=== PATIENT | female | born 1990 | race Caucasian/White ===

== ENCOUNTER 2017-07-23 19:58 | Emergency (ER) | payer MEDICARE, MEDICAID ==
[2017-07-23 20:42] LABS: BASOPHILS # (AUTO) 0.1 10^3/uL (0.0-0.1); BASOPHILS % (AUTO) 1.1 %; EOSINOPHILS # (AUTO) 0.6 10^3/uL (0.0-0.7); HCT - HEMATOCRIT 39.2 % (37.0-47.0); HGB - HEMOGLOBIN 13.1 g/dL (12.0-16.0); LYMPHOCYTES # (AUTO) 3.2 10^3/uL (1.5-3.5); LYMPHOCYTES % (AUTO) 45.7 %; MEAN CORPUSCULAR HEMOGLOBIN 28.5 pg (27.0-31.0); MEAN CORPUSCULAR HGB CONC 33.4 g/dL (32.0-36.0); MEAN CORPUSCULAR VOLUME 85.3 fL (81.0-99.0); MEAN PLATELET VOLUME 7.6 fL (7.9-10.8); MONOCYTES # (AUTO) 0.4 10^3/uL (0.0-1.0); MONOCYTES % (AUTO) 5.4 %; NEUTROPHILS # (AUTO) 2.8 10^3/uL (1.5-6.6); NEUTROPHILS % (AUTO) 39.8 %; RED CELL DISTRIBUTION WIDTH 13.9 % (12.0-15.0); UNCORRECTED WHITE BLOOD COUNT 7.1 x10^3/uL; WHITE BLOOD COUNT 7.1 x10^3/uL (4.8-10.8)
[2017-07-23 20:50] LABS: INR 1.1 (0.8-1.2); PT - PROTHROMBIN TIME 12.1 secs (9.9-12.6)
[2017-07-23 20:56] LABS: ALBUMIN/GLOBULIN RATIO 1.6 (1.0-2.2); BILIRUBIN,TOTAL 0.3 mg/dL (0.2-1.0); CALCIUM 9.3 mg/dL (8.5-10.3); CREATININE 0.8 mg/dL (0.4-1.0); POTASSIUM 3.5 mmol/L (3.5-5.0); TOTAL PROTEIN 7.4 g/dL (6.7-8.2)
[2017-07-23 21:07] LABS: BILIRUBIN,URINE NEGATIVE (NEGATIVE)
[2017-07-23 21:12] LABS: UA w/ MICROSCOPIC CHARGE YES
[2017-07-23 21:13] LABS: HCG UR QUAL NEGATIVE
[2017-07-23 21:24] LABS: UR CULTURE IF IND NOT INDICATED; WBC,URINE 0-3 /HPF (0-5)
[2017-07-23] MEDS ORDERED: IOPAMIDOL-300 100 ML VIAL ONE (21:37)
--- NOTE | 2017-07-23 21:37 | ED Physician Documentation ---
PD HPI CHEST PAIN - Stated complaint Stated Complaint: LEG PX - Chief complaint Chief Complaint: Cardiac - History obtained from History obtained from: Patient - History of Present Illness Timing - onset: How many days ago (3) Timing - onset during: Rest Timing - details: Gradual onset, Still present, Intermittant, Waxing and waning Quality: Pressure, Tightness, Aching Location: Substernal Improved by: Rest Worsened by: Exertion Associated symptoms: No: Shortness of air, Nausea Similar symptoms before: Work up / diagnostics, Treatment Recently seen: Not recently seen - Additional information Additional information: Patient is 26 year old female with a history of prior dvts and PE who is not on blood thinners who is presenting to the emergency department for chest pain and shortness of breath. Patient states that for the last week or so she hasn't felt well. She has had generalized weakness, chest pain, leg swelling and trouble breathing. Patient states that her physician told her to come in if she ever had chest pain with her shortness of breath. Review of Systems Constitutional: reports: Chills, Myalgias. denies: Fever Eyes: denies: Decreased vision, Photophobia Ears: denies: Ear pain, Drainage/discharge Nose: denies: Congestion, Epistaxis Throat: denies: Sore throat Cardiac: reports: Chest pain / pressure, Pedal edema Respiratory: reports: Dyspnea. denies: Wheezing GI: denies: Abdominal Pain, Nausea, Vomiting : denies: Dysuria, Frequency Skin: denies: Rash, Lesions, Abrasion (s) Musculoskeletal: reports: Extremity pain, Extremity swelling Neurologic: reports: Generalized weakness. denies: Focal weakness, Numbness, Difficulty speaking Immunocompromised: denies: Immunocompromised PD PAST MEDICAL HISTORY - Past Medical History Past Medical History: Yes Cardiovascular: Arrhythmia Neuro: Headache/migraine HEENT: None Psych: Anxiety, Post traumatic stress disorder - Allergies Allergies/Adverse Reactions: Allergies Allergy/AdvReac Type Severity Reaction Status Date / Time doxycycline Allergy Unknown Verified 07/23/17 20:12 ketamine Allergy Unknown Verified 07/23/17 20:12 Latex, Natural Rubber Allergy Unknown Verified 07/23/17 20:12 morphine Allergy Unknown Verified 07/23/17 20:12 propranolol Allergy Unknown Verified 07/23/17 20:12 NSAIDS (Non-Steroidal AdvReac Unknown Verified 07/23/17 20:12 Anti-Inflamma - Social History Does the pt smoke?: Yes Smoking Status: Current every day smoker Does the pt drink ETOH?: No Does the pt have substance abuse?: Yes Substance Use and Type: Marijuana - Immunizations Immunizations are current?: No Immunizations: TDAP >10years/unknown - POLST Patient has POLST: No PD ED PE NORMAL - Vitals Vital signs reviewed: Yes - General General: Alert and oriented X 3, No acute distress, Well developed/nourished - HEENT HEENT: Atraumatic, PERRL, Pharynx benign - Neck Neck: Supple, no meningeal sign, No JVD - Cardiac Cardiac: RRR, No murmur - Respiratory Respiratory: No respiratory distress, Clear bilaterally - Abdomen Abdomen: Soft, Non tender, Non distended - Derm Derm: Normal color, Warm and dry, No rash PD ED PE EXPANDED - HEENT HEENT: Dry mucous membranes, Dental decay - Extremities Extremities: Right leg, Left leg (tenderness to palpation of bilateral lower extremities) Results - Vitals Vitals: Vital Signs - 24 hr 07/23/17 07/23/17 07/23/17 20:08 22:24 23:10 Temperature 35.9 C L 36.9 C Heart Rate 63 58 L 78 Respiratory 16 12 16 Rate Blood Pressure 125/50 L 93/53 L 95/60 O2 Saturation 100 98 100 Oxygen O2 Source Room air - EKG (time done) *2012 Rate: Rate (enter#) (50) Rhythm: Sinus bradycardia [place]: Normal Intervals: Normal [place] QRS: Normal, Low voltage Ischemia: Normal ST segments Compare to prior EKG: Old EKG unavailable - Labs Labs: Laboratory Tests 07/23/17 07/23/17 07/23/17 20:35 20:35 20:35 WBC 7.1 RBC 4.60 Hgb 13.1 Hct 39.2 MCV 85.3 MCH 28.5 MCHC 33.4 RDW 13.9 Plt Count 242 MPV 7.6 L Neut # 2.8 Lymph # 3.2 [place] # 0.4 Eos # 0.6 Baso # 0.1 Absolute Nucleated RBC 0.00 Nucleated RBC % 0.0 PT 12.1 INR 1.1 APTT 32.1 Sodium 137 Potassium 3.5 Chloride 103 Carbon Dioxide 27 Anion Gap 7.0 BUN 14 Creatinine 0.8 Estimated GFR (MDRD) 86 L Glucose 87 Calcium 9.3 Total Bilirubin 0.3 AST 18 ALT 13 Alkaline Phosphatase 54 Troponin I B-Natriuretic Peptide Total Protein 7.4 Albumin 4.6 Globulin 2.8 Albumin/Globulin Ratio 1.6 Lipase 27 Serum HCG, Qual Urine Color Urine Clarity Urine pH Ur Specific [place] Urine Protein Urine Glucose (UA) Urine Ketones Urine Occult Blood Urine Nitrite Urine Bilirubin Urine Urobilinogen Ur Leukocyte Esterase Urine RBC Urine WBC Ur Squamous Epith Cells Urine Bacteria Ur Microscopic Review Urine Culture Comments Urine HCG, Qual Urine Opiates Screen Ur Oxycodone Screen Urine Methadone Screen Ur Propoxyphene Screen Ur Barbiturates Screen Ur Tricyclics Screen Ur Phencyclidine Scrn Ur Amphetamine Screen U Methamphetamines Scrn U Benzodiazepines Scrn Urine Cocaine Screen U Cannabinoids Screen 07/23/17 07/23/17 07/23/17 20:35 20:35 20:35 WBC RBC Hgb Hct MCV MCH MCHC RDW Plt Count MPV Neut # Lymph # [place] # Eos # Baso # Absolute Nucleated RBC Nucleated RBC % PT INR APTT Sodium Potassium Chloride Carbon Dioxide Anion Gap BUN Creatinine Estimated GFR (MDRD) Glucose Calcium Total Bilirubin AST ALT Alkaline Phosphatase Troponin I < 0.04 B-Natriuretic Peptide 9 Total Protein Albumin Globulin Albumin/Globulin Ratio Lipase Serum HCG, Qual NEGATIVE Urine Color Urine Clarity Urine pH Ur Specific [place] Urine Protein Urine Glucose (UA) Urine Ketones Urine Occult Blood Urine Nitrite Urine Bilirubin Urine Urobilinogen Ur Leukocyte Esterase Urine RBC Urine WBC Ur Squamous Epith Cells Urine Bacteria Ur Microscopic Review Urine Culture Comments Urine HCG, Qual Urine Opiates Screen Ur Oxycodone Screen Urine Methadone Screen Ur Propoxyphene Screen Ur Barbiturates Screen Ur Tricyclics Screen Ur Phencyclidine Scrn Ur Amphetamine Screen U Methamphetamines Scrn U Benzodiazepines Scrn Urine Cocaine Screen U Cannabinoids Screen 07/23/17 07/23/17 21:02 21:02 WBC RBC Hgb Hct MCV MCH MCHC RDW Plt Count MPV Neut # Lymph # [place] # Eos # Baso # Absolute Nucleated RBC Nucleated RBC % PT INR APTT Sodium Potassium Chloride Carbon Dioxide Anion Gap BUN Creatinine Estimated GFR (MDRD) Glucose Calcium Total Bilirubin AST ALT Alkaline Phosphatase Troponin I B-Natriuretic Peptide Total Protein Albumin Globulin Albumin/Globulin Ratio Lipase Serum HCG, Qual Urine Color YELLOW Urine Clarity HAZY Urine pH 6.0 Ur Specific [place] 1.020 1.020 Urine Protein NEGATIVE Urine Glucose (UA) NEGATIVE Urine Ketones NEGATIVE Urine Occult Blood NEGATIVE Urine Nitrite NEGATIVE Urine Bilirubin NEGATIVE Urine Urobilinogen 0.2 (NORMAL) Ur Leukocyte Esterase NEGATIVE Urine RBC 0-5 Urine WBC 0-3 Ur Squamous Epith Cells MANY Squamous H Urine Bacteria Few Ur Microscopic Review INDICATED Urine Culture Comments NOT INDICATED Urine HCG, Qual NEGATIVE Urine Opiates Screen NEGATIVE Ur Oxycodone Screen NEGATIVE Urine Methadone Screen NEGATIVE Ur Propoxyphene Screen NEGATIVE Ur Barbiturates Screen NEGATIVE Ur Tricyclics Screen NEGATIVE Ur Phencyclidine Scrn NEGATIVE Ur Amphetamine Screen NEGATIVE U Methamphetamines Scrn NEGATIVE U Benzodiazepines Scrn NEGATIVE Urine Cocaine Screen NEGATIVE U Cannabinoids Screen NEGATIVE - Rads (name of study) ct angio Radiology: Final report received (no PE) vasc Radiology: Final report received (no dvts bilaterally) PD MEDICAL DECISION MAKING - ED course Complexity details: reviewed old records, reviewed results, re-evaluated patient , considered differential, d/w patient, d/w family ED course: Patient was seen and examined at bedside. IV access was gained and labs were drawn. ekg was performed and within normal limits. Imaging was ordered. Patient's vasc study and CT angio were both within normal limits. Patient had no focal infection or cardiac reason for her pain. Patient required no further work up and was stable for discharge with outpatient follow up. Departure - Departure Disposition: 01 Home, Self Care Clinical Impression: Atypical chest pain Condition: Good Instructions: ED Chest Pain NonCardiac Follow-Up: primary,care provider [Other] - Within 1 week Comments: Your diagnostics today were within normal limits. there was no sign of a blood clot in either your legs or your lungs. You are likely fighting a virus. You can take motrin or tylenol as needed for pain. You should stay well hydrated and get plenty of rest. You should follow up with your pmd if your symptoms persist. You may return to the emergency department at any time for new, worsening or uncontrollable symptoms. Discharge Date/Time: 07/23/17 23:25
[2017-07-23] MEDS ORDERED: ACETAMINOPHEN 500 MG TABLET PO STA (21:43)
[2017-07-23 21:47] LABS: PARTIAL THROMBOPLASTIN TIME 32.1 secs (24.9-33.3)
[2017-07-23] MEDS ORDERED: ACETAMINOPHEN 500 MG TABLET PO ONE (21:50)
--- NOTE | 2017-07-23 22:11 | Ultrasound Preliminary Report ---
Exam: US DUPLEX EXT VEINS BILATERAL IMPRESSION: No evidence for deep venous thrombosis bilaterally. [facility] SITE ID: [id number]
[2017-07-23] MEDS ORDERED: IOPAMIDOL-300 100 ML VIAL IVP ONE (22:15)
--- NOTE | 2017-07-23 22:22 | Ultrasound Report ---
EXAM: BILATERAL LOWER EXTREMITY VENOUS ULTRASOUND EXAM DATE: 07/23/2017 09:48 PM. CLINICAL HISTORY: Leg swelling, history of DVT. COMPARISON: None. TECHNIQUE: Real-time sonographic vascular imaging was performed by the extension edger through the lower extremities utilizing both color-flow and Doppler spectral analysis. Multiple guest service representative static i mages were saved for review. FINDINGS: Right: Common Femoral Vein (CFV): Normal. CFV-GSV Junction: Normal. Profunda Femoral Vein (PFV): Normal. Femoral Vein (FV) Prox: Normal. Femoral Vein (FV) Mid: Normal. Femoral Vein (FV) Dist: Normal. Popliteal Vein: Normal. Posterior Tibial Veins: Normal. Peroneal Veins: Not well seen. Left: Common Femoral Vein (CFV): Normal. CFV-GSV Junction: Normal. Profunda Femoral Vein (PFV): Normal. Femoral Vein (FV) Prox: Normal. Femoral Vein (FV) Mid: Normal. Femoral Vein (FV) Dist: Normal. Popliteal Vein: Normal. Posterior Tibial Veins: Normal. Peroneal Veins: Normal. Other: None. IMPRESSION: No evidence for deep venous thrombosis bilaterally. [facility] Referring Provider Line: [phone] SITE ID: [id number]
--- NOTE | 2017-07-23 22:43 | CT Preliminary Report ---
Exam: CT CHEST ANGIO (PE) IMPRESSION: 1. No pulmonary emboli seen. 2. Mild cardiomegaly with trace pericardial effusion. 3. Small pleural effusions with mild bibasilar atelectasis and possible minimal interstitial edema. [facility] SITE ID: [id number]
--- NOTE | 2017-07-23 22:46 | CT Report ---
EXAM: CT ANGIOGRAM CHEST EXAM DATE: 07/23/2017 10:18 PM. CLINICAL HISTORY: Chest pain and shortness of breath. COMPARISON: None. TECHNIQUE: Routine helical imaging was performed through the chest in the pulmonary arterial phase. I V Contrast: Nonionic. Reconstructions: Coronal 3-D MIP reconstructions.Sagittal and coronal. In accordance with CT protocol optimization, one or more of the following dose reduction techniques w ere utilized for this exam: automated exposure control, adjustment of mA and/or KV based on patient s ize, or use of iterative reconstructive technique. FINDINGS: Pulmonary Arteries: Diagnostic quality: Adequate through the segmental arteries. No evidence for acute or chronic pulmona ry emboli. No evidence of right heart strain. Lungs/Pleura: Elevated right hemidiaphragm. Small bilateral pleural effusions. Mild bibasilar atelect asis. Possible minimal interstitial edema. Mediastinum: Mild cardiomegaly. Trace pericardial effusion. No lymphadenopathy. Thoracic Aorta: Unremarkable. Upper Abdomen: Status post cholecystectomy. Large amount of stool in the visualized portions of the c olon. Other: None. IMPRESSION: 1. No pulmonary emboli seen. 2. Mild cardiomegaly with trace pericardial effusion. 3. Small pleural effusions with mild bibasilar atelectasis and possible minimal interstitial edema. [facility] Referring Provider Line: [phone] SITE ID: [id number]
[2017-07-23] MEDS ORDERED: SODIUM CHLORIDE 0.9% 1,000 ML IV ONE (23:04)
[2017-07-23 23:10] VITALS: BP 95/60
== END 2017-07-23 23:25 | disposition home or self-care (01) ==
LOC: ED 19:58
DX: R07.89 Other chest pain (principal); R00.1 Bradycardia, unspecified; F17.200 Nicotine dependence, unspecified, uncomplicated; Z86.718 Personal history of other venous thrombosis and embolism; Z86.711 Personal history of pulmonary embolism
CPT/HCPCS: 36415; 71275; 80053; 80306; 81001; 81025; 83690; 83880; 84484; 84703; 85025; 85610; 85730; 93005; 93970; 99284; A9270; Q9967; 81003; 87086

== ENCOUNTER 2018-01-17 20:15 | Emergency (ER) | payer MEDICARE, MEDICAID ==
[2018-01-17] MEDS ORDERED: SULFAMETH/TRIMETH DS 800/160 MG TABLET PO STA (20:33)
[2018-01-17] MEDS ORDERED: BUFFERED LIDOCAINE 10 ML SYRINGE SUBQ STA (20:33)
--- NOTE | 2018-01-17 20:36 | ED Physician Documentation ---
PD HPI SKIN - Stated complaint Stated Complaint: FACE SORES/FEELING BAD - Chief complaint Chief Complaint: Wound - History obtained from History obtained from: Patient - History of Present Illness Timing - onset: Other (She has a history of MRSA. She has had some nonhealing sores on her face, especially one on the right christianity and does not feel quite right, some myalgias but no measured fevers.) Review of Systems Constitutional: reports: Myalgias. denies: Fever, Chills Nose: denies: Rhinorrhea / runny nose, Congestion Throat: denies: Sore throat PD PAST MEDICAL HISTORY - Past Medical History Cardiovascular: Arrhythmia Neuro: Headache/migraine HEENT: None Psych: Anxiety, Post traumatic stress disorder - Present Medications Home Medications: Ambulatory Orders Medication Instructions Recorded Confirmed Sulfamethoxazole/Trimethoprim 1 each PO BID 7 Days tablet 01/17/18 [Sulfamethoxazole-Tmp Ds Tablet] - Allergies Allergies/Adverse Reactions: Allergies Allergy/AdvReac Type Severity Reaction Status Date / Time doxycycline Allergy Unknown Verified 01/17/18 20:17 ketamine Allergy Unknown Verified 01/17/18 20:17 Latex, Natural Rubber Allergy Unknown Verified 01/17/18 20:17 morphine Allergy Unknown Verified 01/17/18 20:17 propranolol Allergy Unknown Verified 01/17/18 20:17 NSAIDS (Non-Steroidal AdvReac Unknown Verified 01/17/18 20:17 Anti-Inflamma - Social History Does the pt smoke?: Yes Smoking Status: Current every day smoker Does the pt drink ETOH?: No Does the pt have substance abuse?: Yes - Immunizations Immunizations are current?: No Immunizations: TDAP >10years/unknown - POLST Patient has POLST: No PD ED PE NORMAL - Vitals Vital signs reviewed: Yes - General General: Alert and oriented X 3, No acute distress - HEENT HEENT: Other (There is a few pick that sores in the forehead without active side effects and, there is a cyst on the right christianity measuring about quarter sized with mild overlying cellulitis.) - Neck Neck: Supple, no meningeal sign, No bony TTP - Neuro Neuro: Alert and oriented X 3, Normal speech - Psych Psych: Normal mood, Normal affect Results - Vitals Vitals: Vital Signs - 24 hr 01/17/18 20:17 Temperature 37.1 C Heart Rate 84 Respiratory 18 Rate Blood Pressure 124/72 O2 Saturation 98 Oxygen O2 Source Room air Procedures - Abscess I&D (location) R christianity Preparation: Alcohol, Lidocaine 1% Incision: Incised with scalpel, Culture obtained. No: Purulent drainage Other: Pt tolerated well, Dressing applied, Antibiotic prescribed PD MEDICAL DECISION MAKING - ED course Complexity details: reviewed old records (JENN received and reviewed- 82 ED visits in the last 12 months with multiple admonitions for no narcs/benzos.) Departure - Departure Disposition: 01 Home, Self Care Clinical Impression: Abscess Condition: Good Record reviewed to determine appropriate education?: Yes Instructions: ED Abscess IandD Prescriptions: Sulfamethoxazole/Trimethoprim [Sulfamethoxazole-Tmp Ds Tablet] 1 each PO BID 7 Days tablet Comments: We are performing a wound culture, the results should be done in 48-72 hours. If antibiotic change is necessary we will call you. Return if worse in the meantime, especially if you develop increased pain, fevers, cannot keep down the medication. Otherwise follow-up with your physician in approximately 2-3 days. Call your doctor to arrange a follow-up appointment, make the next available appointment. In the interim, return anytime if worse or if new symptoms develop.
[2018-01-17 21:10] VITALS: BP 117/74
== END 2018-01-17 21:10 | disposition home or self-care (01) ==
LOC: ED 20:15
DX: L02.01 Cutaneous abscess of face (principal); Z86.14 Personal history of Methicillin resistant Staphylococcus aureus infection; F17.200 Nicotine dependence, unspecified, uncomplicated
CPT/HCPCS: 10060; 87070; 87205; 99283; A9270; 87077